=== PATIENT | male | born 1990 | race Two or more races ===

== ENCOUNTER 2022-08-23 20:16 | Emergency (ER) | payer SELFPAY ==
[~2022-08-23] VITALS: Ht 180.3 cm; Wt 100.0 kg
[2022-08-23 21:21] VITALS: BP 137/67
[2022-08-23] MEDS ORDERED: AMOX500T3 PO (21:41)
[2022-08-23] MEDS ORDERED: IBUPROFEN 800 MG TAB PO ONE (21:45)
== END 2022-08-23 20:20 | disposition home or self-care (01) ==
LOC: ER 20:18
DX: J03.90 Acute tonsillitis, unspecified (principal)